=== PATIENT | male | born 1940 | race Caucasian/White ===

== ENCOUNTER 2016-12-09 15:07 | Emergency (ER) | payer MEDICARE, OTHER ==
[~2016-12-09] VITALS: Ht 162.6 cm; Wt 78.9 kg
[~2016-12-09 15:07] MED LIST: ALBU8.5H5 INH; ATOR20TA38 PO; BUPR-34 PO; METO25TA7 PO; PRED10TA PO; TEMA30CA PO
[2016-12-09 15:13] VITALS: Ht 162.6 cm; Wt 78.9 kg
== END 2016-12-09 15:13 | disposition left against medical advice (07) ==
LOC: FTE 15:07
DX: Z53.21 Procedure and treatment not carried out due to patient leaving prior to being seen by health care provider (principal)

== ENCOUNTER 2016-12-11 11:51 | Emergency (ER) | payer MEDICARE, OTHER ==
[~2016-12-11] VITALS: Ht 177.8 cm; Wt 98.5 kg
[2016-12-11 12:28] VITALS: Ht 177.8 cm; Wt 98.5 kg
--- NOTE | 2016-12-11 14:19 | RADRPT ---
PROCEDURE: US Lower extremity Venous. CLINICAL INDICATION: Left leg pain TECHNIQUE: Multiple sonographic images of the left lower extremity deep venous system was obtained utilizing grayscale, color-flow, compressive sonography and doppler imaging with augmentation. The images were reviewed on a PACS workstation. COMPARISON: None. FINDINGS: There is normal compressibility and flow within the left common femoral, femoral, posterior tibial, peroneal and popliteal veins. RPTAT: AA IMPRESSION: No sonographic evidence for deep venous thrombosis. .Vitaly Morley MD, MD Date Time Electronically viewed and signed by .Vitaly Morley MD, on 12/11/2016 14:19 .S/
--- NOTE | 2016-12-11 14:42 | ERA ---
ER Documentation Chief Complaint Date/Time DATE: 12/11/16 TIME: 14:38 Chief Complaint left foot pain chronic 04/03 x 6 days , denies trauma or injury HPI Patient is a 76-year-old male presenting with unilateral left lower extremity from the mid lower extremity on down. Patient states that the swelling started 5 days ago. Has not done anything at this time to improve the swelling. Patient denies any medical conditions except states that he "used to have COPD but it is gone now". Patient is not seeing a PCP. Patient denies any shortness of breath, chest pain, history of cardiovascular disease, headache, changes in vision, decreased hearing, shortness of breath, difficulty breathing , clotting disorder, dysarthria, dysphasia, blurred vision or numbness or tingling in the calfs. Denies drug or alcohol abuse. ROS All systems reviewed and are negative except as per history of present illness. Medications Home Meds Active Scripts Albuterol Sulfate* (Albuterol Sulfate* HFA) 8.5 Gm Hfa.aer.ad, 2 PUFF INH Q4 Y for SHORTNESS OF BREATH, #1 EA Prov:STEFANIE BOOTH MD 03/04/15 Reported Medications Prednisone* (Prednisone*) 10 Mg Tab, 10 MG PO DAILY, TAB 03/25/15 Bupropion Hcl* (Wellbutrin SR*) 150 Mg Tablet.sa, 150 MG PO DAILY X 3 DAYS , TAB.SA THEN TAKE 150 MG BID 03/04/15 Temazepam* (Temazepam*) 30 Mg Capsule, 30 MG PO HS Y for INSOMNIA, CAP 03/04/15 Atorvastatin Calcium* (Atorvastatin Calcium*) 20 Mg Tablet, 20 MG PO HS, TAB 03/04/15 Metoprolol Succinate* (Toprol XL*) 25 Mg Tab.sr.24h, 25 MG PO DAILY, TAB 03/04/15 Allergies Allergies: Coded Allergies: No Known Allergies (Verified Allergy, Unknown, 03/04/15) trazodone (Verified Adverse Reaction, Unknown, 03/04/15) DRY MOUTH PMhx/Soc History of Surgery: No Anesthesia Reaction: No Hx Neurological Disorder: No Hx Respiratory Disorders: Yes Hx Cardiac Disorders: No Hx Psychiatric Problems: No Hx Miscellaneous Medical Probl: No Hx Alcohol Use: Yes Hx Substance Use: No Hx Tobacco Use: Yes Smoking Status: Never smoker Physical Exam Vitals Vital Signs Date Time Temp Pulse Resp B/P Pulse Ox O2 Delivery O2 Flow Rate FiO2 12/11/16 12:28 98.6 94 18 167/81 95 Physical Exam Const: 76-year-old male who seems agitated. Head: Atraumatic Eyes: Normal Conjunctiva ENT: Normal External Ears, Nose and Mouth. Neck: Full range of motion..~ No meningismus. Resp: Clear to auscultation bilaterally Cardio: Regularly irregular rhythm. Fourth heart sound appreciated. Pansystolic ejection murmur appreciated. Abd: Soft, non tender, non distended. Normal bowel sounds Skin: No petechiae or rashes Back: No midline or flank tenderness Ext: Left lower extremity erythema and swelling. There is no tenderness palpation. Neurovascularly intact bilaterally. Neur: Awake and alert Psych: Normal Mood and Affect Result Diagram: 12/11/16 1520 Results 24 hrs Laboratory Tests Test 12/11/16 15:20 White Blood Count 10.410^3/ul Red Blood Count 4.9210^6/ul Hemoglobin 16.0g/dl Hematocrit 48.6% Mean Corpuscular Volume 98.8fl Mean Corpuscular Hemoglobin 32.5pg Mean Corpuscular Hemoglobin Concent 32.9g/dl Red Cell Distribution Width 13.0% Platelet Count 41208^3/UL Mean Platelet Volume 11.5fl Neutrophils % 68.0% Band Neutrophils % 2.0% Lymphocytes % 15.0% Reactive Lymphocytes % 2.0% Monocytes % 11.0% Eosinophils % 2.0% Neutrophils # 7.110^3/ul Lymphocytes # 1.610^3/ul Monocytes # 1.110^3/ul Eosinophils # 0.210^3/ul Platelet Estimate PLT APPEAR ADEQUATE Giant Platelets RARE Anisocytosis OCCASIONAL Prothrombin Time 13.9Sec Prothrombin Time Ratio 1.1 INR International Normalized Ratio 1.07 Activated Partial Thromboplast Time 37.1Sec Procedures/MDM Patient is 76-year-old male with unilateral leg swelling and history of smoking. We will go ahead and workup for a VTE including blood work and ultrasound. Patient's ultrasound was unremarkable. Patient left AMA before blood work was back. Most likely diagnosis is cellulitis of the lower left foot. Patient denies diabetes. Patient has left AMA before complete blood work results were back. Departure Diagnosis: Primary Impression: Cellulitis of left ankle Additional Impression: Ankle cellulitis Condition: Stable Additional Instructions: Patient should return to the emergency department for antibiotics. RAJAT PARSON PA-C Dec 11, 2016 14:42
[2016-12-11 15:41] LABS: ADD SCAN DIFF NO
[2016-12-11 15:43] LABS: HEMATOCRIT 48.6 % (42.0-52.0); MEAN CORPUSCULAR HEMOGLOBIN 32.5 pg (29.0-33.0); MEAN CORPUSCULAR HGB CONC 32.9 g/dl (32.0-37.0); MEAN CORPUSCULAR VOLUME 98.8 fl (82.0-101.0); MEAN PLATELET VOLUME 11.5 fl (7.4-10.4); PLATELET COUNT 191 10^3/UL (140-415); RED BLOOD COUNT 4.92 10^6/ul (4.70-6.10); WHITE BLOOD COUNT 10.4 10^3/ul (4.8-10.8)
[2016-12-11 16:17] LABS: INR 1.07; PROTIME 13.9 Sec (12.2-14.2); PT RATIO 1.1
[2016-12-11 16:18] LABS: PARTIAL THROMBOPLASTIN TIME 37.1 Sec (25.0-35.0)
[2016-12-11 16:46] LABS: EOSINOPHILS # 0.2 10^3/ul (0.0-0.5); LYMPHOCYTES # 1.6 10^3/ul (0.8-2.9); MONOCYTE # 1.1 10^3/ul (0.3-0.9); NEUTROPHIL # 7.1 10^3/ul (1.6-7.5)
[2016-12-11 16:48] LABS: ANISOCYTOSIS OCCASIONAL; PLATELET ESTIMATE PLT APPEAR ADEQUATE
== END 2016-12-11 16:47 | disposition left against medical advice (07) ==
LOC: FTE 11:51
DX: L03.116 Cellulitis of left lower limb (principal); Z87.891 Personal history of nicotine dependence
CPT/HCPCS: 85025; 85610; 85730; 93971

== ENCOUNTER 2018-02-21 14:25 | Emergency (ER) | END 2018-02-21 17:56 | disposition left against medical advice (07) ==

== ENCOUNTER → 2018-04-26 | Emergency (ER) | END | disposition left against medical advice (07) ==